=== PATIENT | female | born 1950 | race African-American/Black ===

== ENCOUNTER 2025-05-07 20:57 | Emergency (ER) | payer MEDICARE ==
[~2025-05-07] VITALS: Ht 167.6 cm; Wt 64.0 kg
[2025-05-07 22:05] VITALS: O2SAT 97
[2025-05-08 00:33] VITALS: TEMP 36.9
[2025-05-08] MEDS: LIDOCAINE HCL 1% 20ML VIAL INFIL ONE (03:00)
[2025-05-08] MEDS: ACETAMINOPHEN 325MG TABLET PO ONE (03:12)
[2025-05-08] MEDS ORDERED: BO1 TP (04:22)
[2025-05-08] MEDS ORDERED: ACET-2708 MT (04:22)
[2025-05-08] MEDS: TETANUS, DIPHTHERIA, PERTUSSIS VAC/PF 0.5ML (>10YR OLD) IM ONE (04:33)
[2025-05-08 05:01] VITALS: BP 143/89; PULSE 70; RESP 20; O2SAT 100
== END 2025-05-08 04:52 | disposition home or self-care (01) ==
LOC: ER 20:57
DX: S61.012A Laceration without foreign body of left thumb without damage to nail, initial encounter (principal); X58.XXXA Exposure to other specified factors, initial encounter; Y93.89 Activity, other specified; Y92.89 Other specified places as the place of occurrence of the external cause; Y99.8 Other external cause status
CPT/HCPCS: 99283; 90715; 12001; 90471; J2003

== ENCOUNTER 2025-05-20 13:26 | Emergency (ER) | payer MEDICARE ==
[~2025-05-20] VITALS: Ht 165.1 cm; Wt 66.0 kg
[~2025-05-20 13:26] MED LIST: ACET-2708 MT; BO1 TP
[2025-05-20 13:37] VITALS: O2SAT 100
[2025-05-20 14:22] VITALS: BP 150/78; PULSE 71; RESP 16; TEMP 36.7; O2SAT 100
== END 2025-05-20 14:23 | disposition home or self-care (01) ==
LOC: ER 13:26
DX: S61.012D Laceration without foreign body of left thumb without damage to nail, subsequent encounter (principal); X58.XXXD Exposure to other specified factors, subsequent encounter
CPT/HCPCS: 99282